=== PATIENT | female | born 1960 | race Caucasian/White ===

== ENCOUNTER → 2022-06-28 | Day surgery (SDC) | payer BC ==
--- NOTE | 2022-06-28 10:51 | RAD REPORT ---
EXAM DESCRIPTION: Ultrasound-guided cyst aspiration in the left breast CLINICAL HISTORY: R92.8 COMPARISON: Follow Up Breast Axilla Comp dated 05/29/2022 FINDINGS: Informed consent was obtained and time-out was performed. The patient's left breast was prepped and draped in the usual sterile fashion. 1% lidocaine was used for local anesthetic purposes. Using ultrasound guidance, an 18 gauge spinal needle was advanced into the subareolar lesion. Approxi mately 1 cc of greenish fluid was aspirated. The cyst was completely decompressed and no longer visua lized. The sample was discarded as it was not suspicious and consistent with a benign process. Patient tolerated procedure well. IMPRESSION: Successful ultrasound guided cyst aspiration in the left breast. The cyst was benign. Th e patient can return to annual screening mammogram.
== END ==
LOC: DS 08:00
PROVIDERS: ATTEND Internal Medicine
DX: R92.8 Other abnormal and inconclusive findings on diagnostic imaging of breast (principal)
CPT/HCPCS: 19000